=== PATIENT | male | born 1990 | race Caucasian/White ===

== ENCOUNTER 2021-05-19 13:49 | Emergency (ER) | payer MEDICAID ==
--- NOTE | 2021-05-19 14:59 | EDM.PDOC ---
ED HPI GENERAL MEDICAL PROBLEM - General Chief Complaint: Gastrointestinal Problem Stated Complaint: FEVER,CHILLS,COUGH,FATIGUE,ULCER Time Seen by Provider: 05/19/21 14:45 Source of Information: Reports: Patient History Limitations: Reports: No Limitations - History of Present Illness INITIAL COMMENTS - FREE TEXT/NARRATIVE: 30-year-old male with a history of gastric ulcers, thinks he has a flareup again and he also has Covid symptoms. He has a headache, body aches, mild cough and upper abdominal ingestion and discomfort. He does not have pain radiating to his back, he does not have dark stools but he did vomit a small amount of blood yesterday. Eating causes abdominal pain. He is not on any antacids or also preventative medications. No diarrhea. Mild fevers with intermittent chills he is not Covid vaccinated. Duration: Day(s): (Symptoms for 3 days) Location: Reports: Other (Discomfort is upper abdomen) Associated Symptoms: Reports: Cough, Fever/Chills, Malaise, Nausea/Vomiting, Weakness, Other (Generalized body aches) Abdomen Pain Score (Numeric/FACES): 3 - Related Data Allergies Allergy/AdvReac Type Severity Reaction Status Date / Time No Known Allergies Allergy Verified 05/19/21 14:29 Home Meds: Home Meds NK [No Known Home Meds] 05/19/21 [History] Past Medical History - Infectious Disease History Infectious Disease History: Reports: Chicken Pox - Past Surgical History GI Surgical History: Reports: Hernia, Inguinal Social & Family History - Caffeine Use Caffeine Use: Reports: Soda - Recreational Drug Use Recreational Drug Use: No ED ROS GENERAL - Review of Systems Review Of Systems: See Below Constitutional: Reports: Fever, Chills, Malaise HEENT: Reports: Rhinitis. Denies: Throat Pain Respiratory: Reports: Cough. Denies: Shortness of Breath Cardiovascular: Denies: Chest Pain GI/Abdominal: Reports: Abdominal Pain (Epigastric area only), Nausea, Vomiting. Denies: Constipation, Diarrhea : Reports: No Symptoms Skin: Reports: No Symptoms Neurological: Reports: Dizziness, Weakness Psychiatric: Reports: No Symptoms ED EXAM, GENERAL - Physical Exam Exam: See Below Exam Limited By: No Limitations General Appearance: Alert, No Apparent Distress Eye Exam: Bilateral Eye: Normal Inspection Ears: Normal TMs Throat/Mouth: Normal Inspection Head: Atraumatic Respiratory/Chest: No Respiratory Distress, Lungs Clear Cardiovascular: Regular Rate, Rhythm. No: Tachycardia GI/Abdominal: Soft, Tender (Mild tenderness in the epigastric area but no guarding or rebound) Extremities: Normal Inspection Neurological: Alert, Oriented Psychiatric: Normal Affect, Normal Mood Skin Exam: Warm, Dry Course - Vital Signs Last Recorded V/S: Last Vital Signs Temp 100.0 F 05/19/21 14:25 Pulse 75 05/19/21 14:25 Resp 16 05/19/21 14:25 BP 129/84 05/19/21 14:25 Pulse Ox 97 05/19/21 14:25 - Orders/Labs/Meds Labs: Laboratory Tests 05/19/21 05/19/21 Range/Units 14:58 14:58 WBC 5.9 (4.5-11.0) K/uL RBC 5.36 (4.30-5.90) M/uL Hgb 16.8 H (12.0-15.0) g/dL Hct 46.6 (40.0-54.0) % MCV 87 (80-98) fL MCH 31 (27-31) pg MCHC 36 (32-36) % Plt Count 190 (150-400) K/uL Neut % (Auto) 65.9 (36-66) % Lymph % (Auto) 23.6 L (24-44) % [place] % (Auto) 9.8 H (2-6) % Eos % (Auto) 0.5 L (2-4) % Baso % (Auto) 0.2 (0-1) % Sodium 140 (140-148) mmol/L Potassium 4.1 (3.6-5.2) mmol/L Chloride 100 (100-108) mmol/L Carbon Dioxide 28 (21-32) mmol/L Anion Gap 11.9 (5.0-14.0) mmol/L BUN 15 (7-18) mg/dL Creatinine 0.9 (0.8-1.3) mg/dL Est Cr Clr Drug Dosing 92.01 mL/min Estimated GFR (MDRD) > 60 (>60) Glucose 96 (74-106) mg/dL Calcium 9.9 (8.5-10.1) mg/dL - Re-Assessments/Exams Free Text/Narrative Re-Assessment/Exam: 05/19/21 15:16 CBC was checked for baseline, a Covid test was attempted but the patient refused. Hemoglobin is normal, patient was encouraged to take omeprazole 40 mg daily for 3 days, then 20 mg daily for 2 full weeks. He can return if symptoms are persistent. 05/19/21 15:18 Hemoglobin is 16.8 Departure - Departure Time of Disposition: 15:22 Disposition: Home, Self-Care 01 Clinical Impression: Viral syndrome Gastritis Qualifiers: Gastritis type: unspecified gastritis Chronicity: acute Gastritis bleeding: presence of bleeding unspecified Qualified Code(s): K29.00 - Acute gastritis without bleeding - Discharge Information Instructions: Gastritis, Adult, [id number] Referrals: PCP,None [Primary Care Provider] - Forms: ED Department Discharge Care Plan Goals: Take 40 mg of omeprazole once a day for 3 consecutive days, then 20 mg daily for 2 consecutive weeks. Your symptoms should rapidly improve as far as stomach discomfort. If you are worsening such as increased pain, darker stools or persistent nausea and vomiting recheck at any time. Sepsis Event Note (ED) - Focused Exam Vital Signs: Vital Signs Temp Pulse Resp BP Pulse Ox 05/19/21 14:25 100.0 F 75 16 129/84 97
== END 2021-05-19 15:26 | disposition home or self-care (01) ==
LOC: JP.ED 13:49
DX: K29.00 Acute gastritis without bleeding (principal); B34.9 Viral infection, unspecified
CPT/HCPCS: 36415; 80048; 85025; 99284

== ENCOUNTER 2021-09-14 23:01 | Emergency (ER) | payer OTHER, MEDICAID | END 2021-09-15 00:28 | disposition home or self-care (01) | LOC: JP.ED 23:01 | DX: S16.1XXA Strain of muscle, fascia and tendon at neck level, initial encounter (principal); Z72.0 Tobacco use; V49.10XA Passenger injured in collision with unspecified motor vehicles in nontraffic accident, initial encounter; Y92.410 Unspecified street and highway as the place of occurrence of the external cause | CPT/HCPCS: 72125; 99283-25 ==